=== PATIENT | male | born 1990 | race Caucasian/White ===

== ENCOUNTER 2016-06-30 09:08 | Emergency (ER) | payer OTHER ==
[~2016-06-30] VITALS: Ht 185.4 cm; Wt 104.5 kg
[~2016-06-30 09:08] MED LIST: ASPIR 8181 M1 PO; BACTRIM,SEPT1 TABLET PO; DEPAKOTE ER500 MG PO; FLEXERIL10 MG PO; FLEXERIL5 MG PO; KEFLEX500 MG PO; LEVEMIR100 UNIT/2 SC; LISINOPRIL-HCT1 EAC3 PO; MOTRIN800 MG PO; NAPROSYN500 MG PO; NAPROXEN500 MG PO; NORCO 7.5/321 TABLET PO; NOVOLIN N100 UNITS/ SC; NOVOLIN,HU100 UNITS1 SC; OXYCODONE-APAP1 EACH PO; PERCOCET 5/31 TABLET PO; PRAVACHOL40 MG PO; PRILOSEC OTC20 MG PO; TENORMIN50 MG PO; TOPIRAMATE25 MG PO; TORADOL10 MG PO; TRILEPTAL600 MG PO
[2016-06-30 10:55] LABS: POINT-OF-CARE METER ID UU14100415
[2016-06-30] MEDS ORDERED: ZOFRAN ODT4 MG PO (12:15)
[2016-06-30] MEDS ORDERED: REGLAN10 MG PO (12:18)
[2016-06-30] MEDS ORDERED: TORADOL10 MG PO (12:18)
[2016-06-30 12:20] VITALS: BP 123/82
== END 2016-06-30 12:25 | disposition home or self-care (01) ==
LOC: EME 09:08
PROVIDERS: Nurse Practitioner Family
DX: E10.65 Type 1 diabetes mellitus with hyperglycemia (principal); B34.9 Viral infection, unspecified; R51 Headache; F43.9 Reaction to severe stress, unspecified; E78.5 Hyperlipidemia, unspecified; I10 Essential (primary) hypertension; Z88.6 Allergy status to analgesic agent
CPT/HCPCS: 82948; 99281; 99284; J1885; Q0177

== ENCOUNTER 2016-07-27 03:01 | Emergency (ER) | payer OTHER ==
[~2016-07-27] VITALS: Ht 182.9 cm; Wt 103.5 kg
[~2016-07-27 03:01] MED LIST changes: +REGLAN10 MG PO; +ZOFRAN ODT4 MG PO
[2016-07-27 03:34] LABS: CHLORIDE 101 mEq/L (99-109); HEMATOCRIT 44.4 % (38.0-50.0); MCH 29.5 PG (29.0-34.0); MCHC 33.6 G/DL (30.0-36.0); MCV 87.9 FL (86-99); MEAN PLAT.VOLUME 10.4 uM^3 (9.0-12.4); PLATELET COUNT 128 K/uL (156-360); POTASSIUM 3.8 mEq/L (3.7-5.4); RBC DIS.WIDTH-CV 13.3 % (11.8-14.6); RBC DIS.WIDTH-SD 43.1 % (39-53); RED BLOOD COUNT 5.05 M/uL (4.00-5.50); SODIUM 137 mEq/L (136-147); WHITE BLOOD COUNT 4.3 K/uL (4.1-10.2)
[2016-07-27 03:37] LABS: ANION GAP 14 MEQ/L (2-14)
[2016-07-27 03:39] LABS: GFR ESTIMATE (CALCULATED) > 59 mL/min/
[2016-07-27 03:40] LABS: UREA NITROGEN (BUN) 18 mg/dL (9-23)
[2016-07-27 03:42] LABS: GLUCOSE 402 mg/dL (70-99)
[2016-07-27 03:46] LABS: TROP-I INTERPRETATION NEGATIVE; TROPONIN-I < 0.01 ng/mL (0.0-0.30)
[2016-07-27 05:34] LABS: CARBON DIOXIDE (BICARBONATE) 31.2 MEQ/L (20-31)
[2016-07-27 06:40] LABS: TOTAL BILIRUBIN 0.6 mg/dL (0.0-1.0)
[2016-07-27 06:41] LABS: ALKALINE PHOSPHATASE 71 IU/L (3-129)
[2016-07-27 06:42] LABS: D-DIMER ELISA < 0.15 mg/L FEU (< 0.57)
[2016-07-27 06:44] LABS: DIRECT BILIRUBIN 0.1 mg/dL (0.0-0.3)
[2016-07-27 07:56] LABS: TROP-I INTERPRETATION NEGATIVE; TROPONIN-I < 0.01 ng/mL (0.0-0.30)
[2016-07-27] MEDS ORDERED: ZITHROMAX Z-PA250 MG PO (09:20)
[2016-07-27] MEDS ORDERED: PROAIR HFA8.5 GM IH (09:20)
[2016-07-27 09:24] VITALS: BP 102/52
== END 2016-07-27 09:27 | disposition home or self-care (01) ==
LOC: EME 03:01
PROVIDERS: Emergency Medicine
DX: J40 Bronchitis, not specified as acute or chronic (principal); R07.89 Other chest pain; E11.65 Type 2 diabetes mellitus with hyperglycemia; E78.5 Hyperlipidemia, unspecified; I10 Essential (primary) hypertension; F17.200 Nicotine dependence, unspecified, uncomplicated; Z79.82 Long term (current) use of aspirin; Z79.4 Long term (current) use of insulin
CPT/HCPCS: 71020; 80048; 80076; 80164; 82010; 82803; 84484; 85027; 85379; 93005; 94640; 99281; 99284

== ENCOUNTER 2016-08-09 05:02 | Emergency (ER) | payer OTHER ==
[~2016-08-09] VITALS: Ht 185.4 cm; Wt 98.8 kg
[~2016-08-09 05:02] MED LIST changes: +PROAIR HFA8.5 GM IH; +ZITHROMAX Z-PA250 MG PO
[2016-08-09 05:38] LABS: CHLORIDE 103 mEq/L (99-109); POTASSIUM 3.7 mEq/L (3.7-5.4); SODIUM 138 mEq/L (136-147)
[2016-08-09 05:40] LABS: GLUCOSE 142 mg/dL (70-99)
[2016-08-09 05:41] LABS: ANION GAP 10 MEQ/L (2-14)
[2016-08-09 05:42] LABS: TOTAL BILIRUBIN 0.7 mg/dL (0.0-1.0)
[2016-08-09 05:44] LABS: ALKALINE PHOSPHATASE 59 IU/L (3-129); GFR ESTIMATE (CALCULATED) > 59 mL/min/
[2016-08-09 05:45] LABS: UREA NITROGEN (BUN) 24 mg/dL (9-23)
[2016-08-09 05:48] LABS: HEMATOCRIT 42.6 % (38.0-50.0); MCH 29.7 PG (29.0-34.0); MCHC 35.2 G/DL (30.0-36.0); MCV 84.4 FL (86-99); RBC DIS.WIDTH-CV 12.9 % (11.8-14.6); RBC DIS.WIDTH-SD 39.3 % (39-53); RED BLOOD COUNT 5.05 M/uL (4.00-5.50)
[2016-08-09 05:49] LABS: PLATELET COUNT 168 K/uL (156-360); WHITE BLOOD COUNT 5.7 K/uL (4.1-10.2)
[2016-08-09] MEDS ORDERED: BENTYL20 MG PO (10:43)
[2016-08-09 11:14] VITALS: BP 114/66
== END 2016-08-09 11:26 | disposition home or self-care (01) ==
LOC: EME 05:02
DX: K27.9 Peptic ulcer, site unspecified, unspecified as acute or chronic, without hemorrhage or perforation (principal); R10.9 Unspecified abdominal pain; F17.200 Nicotine dependence, unspecified, uncomplicated; E11.9 Type 2 diabetes mellitus without complications; E78.5 Hyperlipidemia, unspecified; I10 Essential (primary) hypertension; Z79.4 Long term (current) use of insulin; Z79.82 Long term (current) use of aspirin
CPT/HCPCS: 74177; 80053; 81003; 85027; 99281; 99285; J2270

== ENCOUNTER 2016-08-27 15:55 | Emergency (ER) | payer OTHER ==
[~2016-08-27] VITALS: Ht 182.9 cm; Wt 83.3 kg
[~2016-08-27 15:55] MED LIST changes: +BENTYL20 MG PO
[2016-08-27 16:39] LABS: POINT-OF-CARE METER ID UU13113778
[2016-08-27 16:51] LABS: HEMATOCRIT 40.6 % (38.0-50.0); MCH 29.7 PG (29.0-34.0); MCHC 35.5 G/DL (30.0-36.0); MCV 83.7 FL (86-99); MEAN PLAT.VOLUME 9.8 uM^3 (9.0-12.4); PLATELET COUNT 142 K/uL (156-360); RBC DIS.WIDTH-CV 13.2 % (11.8-14.6); RBC DIS.WIDTH-SD 39.8 % (39-53); RED BLOOD COUNT 4.85 M/uL (4.00-5.50); WHITE BLOOD COUNT 4.8 K/uL (4.1-10.2)
[2016-08-27 17:02] LABS: CHLORIDE 103 mEq/L (99-109); POTASSIUM 4.2 mEq/L (3.7-5.4); SODIUM 135 mEq/L (136-147)
[2016-08-27 17:05] LABS: GLUCOSE 272 mg/dL (70-99)
[2016-08-27 17:06] LABS: ANION GAP 9 MEQ/L (2-14)
[2016-08-27 17:07] LABS: TOTAL BILIRUBIN 0.5 mg/dL (0.0-1.0)
[2016-08-27 17:08] LABS: ALKALINE PHOSPHATASE 53 IU/L (3-129); GFR ESTIMATE (CALCULATED) > 59 mL/min/
[2016-08-27 17:09] LABS: UREA NITROGEN (BUN) 24 mg/dL (9-23)
[2016-08-27 19:06] LABS: POINT-OF-CARE METER ID UU14100415
[2016-08-27] MEDS ORDERED: VALIUM5 MG PO (20:08)
[2016-08-27 20:18] VITALS: BP 124/75
== END 2016-08-27 20:39 | disposition home or self-care (01) ==
LOC: EME 15:55
PROVIDERS: Physician Assistant
DX: E11.65 Type 2 diabetes mellitus with hyperglycemia (principal); R25.2 Cramp and spasm; E78.5 Hyperlipidemia, unspecified; I10 Essential (primary) hypertension; Z79.4 Long term (current) use of insulin; Z79.82 Long term (current) use of aspirin; F17.200 Nicotine dependence, unspecified, uncomplicated
CPT/HCPCS: 80053; 81003; 82010; 82948; 85027; 99281; 99285; J2270; J2405; J3010; J7030

== ENCOUNTER 2016-11-10 21:50 | Emergency (ER) | payer OTHER ==
[~2016-11-10] VITALS: Ht 185.4 cm; Wt 95.5 kg
[~2016-11-10 21:50] MED LIST changes: +VALIUM5 MG PO
[2016-11-10 22:35] LABS: HEMATOCRIT 43.3 % (38.0-50.0); MCH 30.3 PG (29.0-34.0); MCHC 33.9 G/DL (30.0-36.0); MCV 89.3 FL (86-99); MEAN PLAT.VOLUME 9.6 uM^3 (9.0-12.4); PLATELET COUNT 161 K/uL (156-360); RBC DIS.WIDTH-CV 13.1 % (11.8-14.6); RED BLOOD COUNT 4.85 M/uL (4.00-5.50); WHITE BLOOD COUNT 7.3 K/uL (4.1-10.2)
[2016-11-10 22:45] LABS: CHLORIDE 97 mEq/L (99-109); POTASSIUM 5.3 mEq/L (3.7-5.4); SODIUM 130 mEq/L (136-147)
[2016-11-10 22:48] LABS: ANION GAP 9 MEQ/L (2-14)
[2016-11-10 22:50] LABS: ALKALINE PHOSPHATASE 69 IU/L (3-129)
[2016-11-10 22:51] LABS: GFR ESTIMATE (CALCULATED) > 59 mL/min/
[2016-11-10 22:52] LABS: UREA NITROGEN (BUN) 27 mg/dL (9-23)
[2016-11-10 22:56] LABS: GLUCOSE 628 mg/dL (70-99)
[2016-11-11 00:15] LABS: ADD MIUA? NO; BILIRUBIN NEGATIVE; BLOOD NEGATIVE; COLOR STRAW ((YELLOW)); GLUCOSE (STRIP) >=500; KETONES NEGATIVE; LEUKOCYTES NEGATIVE; NITRITE NEGATIVE; PROTEIN (STRIP) NEGATIVE; SPECIFIC GRAVITY 1.026 (1.000-1.030); UCUL ADDED? NO; UROBILINOGEN 0.2 MG/DL (0.2-1.0)
[2016-11-11 01:03] LABS: POINT-OF-CARE METER ID UU14100415
[2016-11-11 01:35] LABS: POINT-OF-CARE METER ID UU14100415
[2016-11-11 02:20] LABS: POINT-OF-CARE METER ID UU14100415
[2016-11-11 03:00] VITALS: BP 107/60
== END 2016-11-11 03:01 | disposition home or self-care (01) ==
LOC: EME 21:50
PROVIDERS: Emergency Medicine
DX: E11.65 Type 2 diabetes mellitus with hyperglycemia (principal); I10 Essential (primary) hypertension; F32.9 Major depressive disorder, single episode, unspecified; E78.5 Hyperlipidemia, unspecified; Z79.4 Long term (current) use of insulin; Z79.82 Long term (current) use of aspirin; F17.200 Nicotine dependence, unspecified, uncomplicated; Z91.14 Patient's other noncompliance with medication regimen
CPT/HCPCS: 80053; 81003; 82948; 85027; 99281; 99285; J1815; J1885; J7030

== ENCOUNTER 2016-11-24 06:14 | Emergency (ER) | payer OTHER ==
[~2016-11-24] VITALS: Ht 185.4 cm; Wt 96.2 kg
[2016-11-24 08:11] LABS: HEMATOCRIT 40.7 % (38.0-50.0); MCH 30.9 PG (29.0-34.0); MCHC 34.9 G/DL (30.0-36.0); MCV 88.5 FL (86-99); MEAN PLAT.VOLUME 9.9 uM^3 (9.0-12.4); PLATELET COUNT 159 K/uL (156-360); RBC DIS.WIDTH-CV 12.8 % (11.8-14.6); RBC DIS.WIDTH-SD 41.1 % (39-53); WHITE BLOOD COUNT 6.1 K/uL (4.1-10.2)
[2016-11-24 08:27] LABS: CHLORIDE 106 mEq/L (99-109); POTASSIUM 3.6 mEq/L (3.7-5.4); SODIUM 139 mEq/L (136-147)
[2016-11-24 08:29] LABS: GLUCOSE 73 mg/dL (70-99)
[2016-11-24 08:31] LABS: ANION GAP 8 MEQ/L (2-14); TOTAL BILIRUBIN 0.8 mg/dL (0.0-1.0)
[2016-11-24 08:33] LABS: ALKALINE PHOSPHATASE 62 IU/L (3-129); GFR ESTIMATE (CALCULATED) > 59 mL/min/
[2016-11-24 08:34] LABS: UREA NITROGEN (BUN) 16 mg/dL (9-23)
[2016-11-24 08:36] LABS: LIPASE 15 U/L (1.0-51.0)
[2016-11-24 09:58] LABS: ADD MIUA? NO; BILIRUBIN NEGATIVE; BLOOD NEGATIVE; COLOR AMBER ((YELLOW)); GLUCOSE (STRIP) >=500; KETONES NEGATIVE; LEUKOCYTES NEGATIVE; NITRITE NEGATIVE; PROTEIN (STRIP) NEGATIVE; SPECIFIC GRAVITY 1.029 (1.000-1.030); UCUL ADDED? NO
[2016-11-24 11:16] LABS: POINT-OF-CARE METER ID UU13113702
[2016-11-24 12:25] VITALS: BP 115/72
== END 2016-11-24 12:26 | disposition home or self-care (01) ==
LOC: EME 06:14
PROVIDERS: Emergency Medicine
DX: E86.0 Dehydration (principal); R10.84 Generalized abdominal pain; E11.9 Type 2 diabetes mellitus without complications; Z79.4 Long term (current) use of insulin; I10 Essential (primary) hypertension; E78.5 Hyperlipidemia, unspecified; F32.9 Major depressive disorder, single episode, unspecified; F17.200 Nicotine dependence, unspecified, uncomplicated
CPT/HCPCS: 74176; 80053; 81003; 82948; 83690; 85027; 99281; 99284; J2270; J2405; J7030

== ENCOUNTER 2016-12-20 18:18 | Emergency (ER) | payer OTHER ==
[~2016-12-20] VITALS: Ht 185.4 cm; Wt 97.9 kg
[2016-12-20] MEDS ORDERED: MOTRIN800 MG PO (22:34)
[2016-12-20 23:03] VITALS: BP 106/67
== END 2016-12-20 23:04 | disposition home or self-care (01) ==
LOC: EME 18:18
DX: S80.01XA Contusion of right knee, initial encounter (principal); S50.311A Abrasion of right elbow, initial encounter; W01.0XXA Fall on same level from slipping, tripping and stumbling without subsequent striking against object, initial encounter; Y92.480 Sidewalk as the place of occurrence of the external cause; Y99.0 Civilian activity done for income or pay; I10 Essential (primary) hypertension; E10.9 Type 1 diabetes mellitus without complications; Z79.4 Long term (current) use of insulin; F17.200 Nicotine dependence, unspecified, uncomplicated
CPT/HCPCS: 73564; 99281; 99284

== ENCOUNTER 2016-12-29 09:54 | Emergency (ER) | payer OTHER ==
[~2016-12-29] VITALS: Ht 185.4 cm; Wt 93.3 kg
[2016-12-29 10:27] LABS: POINT-OF-CARE METER ID UU13113778
[2016-12-29] MEDS ORDERED: BACTRIM,SEPT1 TABLET PO (11:36)
[2016-12-29] MEDS ORDERED: PERCOCET 5/31 TABLET PO (11:43)
[2016-12-29 12:13] VITALS: BP 120/76
== END 2016-12-29 12:14 | disposition home or self-care (01) ==
LOC: EME 09:54
PROC: 0H96XZZ Drainage of Back Skin, External Approach (ICD-10-PCS; principal; 2016-12-29)
DX: L02.212 Cutaneous abscess of back [any part, except buttock and flank] (principal); I10 Essential (primary) hypertension; E78.5 Hyperlipidemia, unspecified; E11.9 Type 2 diabetes mellitus without complications; Z79.4 Long term (current) use of insulin; Z79.82 Long term (current) use of aspirin; F17.200 Nicotine dependence, unspecified, uncomplicated
CPT/HCPCS: 82948; 99281; 99283

== ENCOUNTER 2017-01-21 01:40 | Emergency (ER) | payer OTHER ==
[~2017-01-21] VITALS: Ht 185.4 cm; Wt 96.6 kg
[2017-01-21 02:30] LABS: CARBON DIOXIDE (BICARBONATE) 26.7 MEQ/L (20-31); HEMATOCRIT 37.4 % (38.0-50.0); MCH 30.5 PG (29.0-34.0); MCV 87.2 FL (86-99); MEAN PLAT.VOLUME 9.7 uM^3 (9.0-12.4); PLATELET COUNT 151 K/uL (156-360); RBC DIS.WIDTH-CV 13.3 % (11.8-14.6); RBC DIS.WIDTH-SD 41.1 % (39-53); RED BLOOD COUNT 4.29 M/uL (4.00-5.50); WHITE BLOOD COUNT 6.6 K/uL (4.1-10.2)
[2017-01-21 02:43] LABS: CHLORIDE 105 mEq/L (99-109); POTASSIUM 4.2 mEq/L (3.7-5.4); SODIUM 136 mEq/L (136-147)
[2017-01-21 02:46] LABS: ANION GAP 12 MEQ/L (2-14)
[2017-01-21 02:47] LABS: TOTAL BILIRUBIN 0.3 mg/dL (0.0-1.0)
[2017-01-21 02:48] LABS: ALKALINE PHOSPHATASE 62 IU/L (3-129)
[2017-01-21 02:49] LABS: GFR ESTIMATE (CALCULATED) > 59 mL/min/
[2017-01-21 02:50] LABS: UREA NITROGEN (BUN) 15 mg/dL (9-23)
[2017-01-21 02:54] LABS: GLUCOSE 531 mg/dL (70-99)
[2017-01-21 03:51] LABS: POINT-OF-CARE METER ID UU13113747
[2017-01-21 04:37] LABS: ADD MIUA? NO; BILIRUBIN NEGATIVE; BLOOD NEGATIVE; COLOR YELLOW ((YELLOW)); GLUCOSE (STRIP) >=500; KETONES NEGATIVE; LEUKOCYTES NEGATIVE; NITRITE NEGATIVE; PROTEIN (STRIP) NEGATIVE; SPECIFIC GRAVITY 1.036 (1.000-1.030); UCUL ADDED? NO; UROBILINOGEN 0.2 MG/DL (0.2-1.0)
[2017-01-21] MEDS ORDERED: PERCOCET 5/31 TABLET PO (04:39)
[2017-01-21 05:36] VITALS: BP 126/68
[2017-01-21 11:45] LABS: POINT-OF-CARE METER ID UU13113778
== END 2017-01-21 05:36 | disposition home or self-care (01) ==
LOC: EME 01:40
PROVIDERS: Physician Assistant
DX: E11.65 Type 2 diabetes mellitus with hyperglycemia (principal); Z79.4 Long term (current) use of insulin; J06.9 Acute upper respiratory infection, unspecified; M54.5 Low back pain; R20.8 Other disturbances of skin sensation; I10 Essential (primary) hypertension; E78.5 Hyperlipidemia, unspecified; Z79.82 Long term (current) use of aspirin; F17.200 Nicotine dependence, unspecified, uncomplicated
CPT/HCPCS: 71020; 80053; 81003; 82010; 82803; 82948; 85027; 99281; 99284; J1885; J2405; J3010; J7030

== ENCOUNTER 2017-01-28 06:57 | Emergency (ER) | payer OTHER ==
[~2017-01-28] VITALS: Ht 182.9 cm; Wt 94.3 kg
[2017-01-28] MEDS ORDERED: NAPROSYN500 MG PO (10:22)
[2017-01-28 10:39] VITALS: BP 110/70
== END 2017-01-28 10:40 | disposition home or self-care (01) ==
LOC: EME 06:57
DX: M25.562 Pain in left knee (principal); R20.0 Anesthesia of skin; E11.40 Type 2 diabetes mellitus with diabetic neuropathy, unspecified; E11.65 Type 2 diabetes mellitus with hyperglycemia; Z79.4 Long term (current) use of insulin; I10 Essential (primary) hypertension; E78.5 Hyperlipidemia, unspecified; Z79.82 Long term (current) use of aspirin; F17.200 Nicotine dependence, unspecified, uncomplicated
CPT/HCPCS: 73564; 93971; 99281; 99284; J1885

== ENCOUNTER 2017-03-25 01:49 | Emergency (ER) | payer OTHER ==
[~2017-03-25] VITALS: Ht 182.9 cm; Wt 101.9 kg
[2017-03-25 02:14] LABS: POINT-OF-CARE METER ID UU13113778
[2017-03-25 02:31] LABS: HEMATOCRIT 41.9 % (38.0-50.0); MCH 29.9 PG (29.0-34.0); MCHC 34.4 G/DL (30.0-36.0); MCV 87.1 FL (86-99); MEAN PLAT.VOLUME 9.8 uM^3 (9.0-12.4); PLATELET COUNT 142 K/uL (156-360); RBC DIS.WIDTH-CV 12.7 % (11.8-14.6); RBC DIS.WIDTH-SD 40.6 % (39-53); RED BLOOD COUNT 4.81 M/uL (4.00-5.50); WHITE BLOOD COUNT 6.2 K/uL (4.1-10.2)
[2017-03-25 02:39] LABS: CHLORIDE 104 mEq/L (99-109); POTASSIUM 4.1 mEq/L (3.7-5.4); SODIUM 138 mEq/L (136-147)
[2017-03-25 02:42] LABS: GLUCOSE 281 mg/dL (70-99)
[2017-03-25 02:43] LABS: ANION GAP 8 MEQ/L (2-14)
[2017-03-25 02:44] LABS: TOTAL BILIRUBIN 0.7 mg/dL (0.0-1.0)
[2017-03-25 02:45] LABS: ALKALINE PHOSPHATASE 66 IU/L (3-129); GFR ESTIMATE (CALCULATED) > 59 mL/min/
[2017-03-25 02:46] LABS: UREA NITROGEN (BUN) 14 mg/dL (9-23)
[2017-03-25 05:37] LABS: POINT-OF-CARE METER ID UU13113702
[2017-03-25 06:02] VITALS: BP 145/73
== END 2017-03-25 06:04 | disposition home or self-care (01) ==
LOC: EXP 01:49 → EME 01:49 → EXP 06:04
PROVIDERS: Physician Assistant
DX: E11.65 Type 2 diabetes mellitus with hyperglycemia (principal); E11.40 Type 2 diabetes mellitus with diabetic neuropathy, unspecified; I10 Essential (primary) hypertension; E78.5 Hyperlipidemia, unspecified; F41.9 Anxiety disorder, unspecified; F32.9 Major depressive disorder, single episode, unspecified; F17.200 Nicotine dependence, unspecified, uncomplicated; Z79.4 Long term (current) use of insulin; Z79.82 Long term (current) use of aspirin; Z88.5 Allergy status to narcotic agent; Z88.8 Allergy status to other drugs, medicaments and biological substances
CPT/HCPCS: 80053; 81003; 82948; 85027; 99281; 99284; J2270; J2405; J7030

== ENCOUNTER 2017-04-21 04:33 | Emergency (ER) | payer OTHER ==
[~2017-04-21] VITALS: Ht 182.9 cm; Wt 96.5 kg
[2017-04-21] MEDS ORDERED: BACTRIM,SEPT1 TABLET PO (04:57)
[2017-04-21] MEDS ORDERED: NIX 5% CREAM60 GM TP (04:57)
[2017-04-21 05:20] VITALS: BP 125/78
== END 2017-04-21 05:33 | disposition home or self-care (01) ==
LOC: EME 04:33
DX: J34.0 Abscess, furuncle and carbuncle of nose (principal); B95.62 Methicillin resistant Staphylococcus aureus infection as the cause of diseases classified elsewhere; B86 Scabies; E11.40 Type 2 diabetes mellitus with diabetic neuropathy, unspecified; E11.69 Type 2 diabetes mellitus with other specified complication; I10 Essential (primary) hypertension; E78.5 Hyperlipidemia, unspecified; F41.9 Anxiety disorder, unspecified; F32.9 Major depressive disorder, single episode, unspecified; F17.200 Nicotine dependence, unspecified, uncomplicated; Z79.4 Long term (current) use of insulin; Z90.89 Acquired absence of other organs; Z88.5 Allergy status to narcotic agent; Z88.8 Allergy status to other drugs, medicaments and biological substances

== ENCOUNTER 2017-05-26 07:47 | Emergency (ER) | payer OTHER ==
[~2017-05-26] VITALS: Ht 182.9 cm; Wt 94.4 kg
[~2017-05-26 07:47] MED LIST changes: +NIX 5% CREAM60 GM TP
[2017-05-26] MEDS ORDERED: BASAGLAR K100 UNIT/1 SC (08:20)
[2017-05-26 08:28] LABS: BASOPHIL (%) 0.4 % (0-1); EOSINOPHIL (%) 1.1 % (0-5); EOSINOPHIL COUNT 0.1 K/uL (0-0.3); HEMATOCRIT 47.2 % (38.0-50.0); HEMOGLOBIN 16.7 G/DL (12.5-16.6); IMMATURE GRANULOCYTE (%) 0.5 % (0.0-0.7); LYMPHOCYTE (%) 25.4 % (15-42); LYMPHOCYTE COUNT 1.9 K/uL (1.0-2.8); MCH 30.9 PG (29.0-34.0); MCHC 35.4 G/DL (30.0-36.0); MCV 87.4 FL (86-99); MONOCYTE (%) 7.1 % (3-12); MONOCYTE COUNT 0.5 K/uL (0-0.8); NEUTROPHIL (%) 65.5 % (45-76); NEUTROPHIL COUNT 4.8 K/uL (1.8-6.4); PLATELET COUNT 161 K/uL (156-360); RBC DIS.WIDTH-CV 14.5 % (11.8-14.6); RBC DIS.WIDTH-SD 46.5 % (39-53); WHITE BLOOD COUNT 7.3 K/uL (4.1-10.2)
[2017-05-26 08:39] LABS: ALBUMIN 4.6 g/dL (3.2-4.8)
[2017-05-26 08:40] LABS: CHLORIDE 100 mEq/L (99-109); POTASSIUM 4.8 mEq/L (3.7-5.4); SODIUM 139 mEq/L (136-147)
[2017-05-26 08:42] LABS: GLUCOSE 261 mg/dL (70-99)
[2017-05-26 08:44] LABS: TOTAL BILIRUBIN 0.5 mg/dL (0.0-1.0)
[2017-05-26 08:45] LABS: ALKALINE PHOSPHATASE 69 IU/L (3-129)
[2017-05-26 08:46] LABS: CREATININE 0.8 mg/dL (0.6-1.3); GFR ESTIMATE (CALCULATED) > 59 mL/min/ (58.99-99999)
[2017-05-26 08:47] LABS: AST (GOT) 15 IU/L (2-34); UREA NITROGEN (BUN) 20 mg/dL (9-23)
[2017-05-26 08:48] LABS: ALT (GPT) 17 IU/L (3-49)
[2017-05-26 10:43] LABS: HEMOGLOBIN A1c (GLYCOHEMOGLOB) 8.3 % (Below 5.7)
[2017-05-26] MEDS ORDERED: NAPROXEN500 MG PO (11:05)
[2017-05-26] MEDS ORDERED: PEN-VEE K,VEET500 MG PO (11:05)
[2017-05-26 11:20] VITALS: BP 125/76
== END 2017-05-26 11:23 | disposition home or self-care (01) ==
LOC: EME 07:47
PROVIDERS: Physician Assistant
DX: E11.65 Type 2 diabetes mellitus with hyperglycemia (principal); K02.9 Dental caries, unspecified; R10.84 Generalized abdominal pain; Z79.4 Long term (current) use of insulin
CPT/HCPCS: 74177; 80053; 82010; 82948; 83036; 83605; 85025; 87040; 99281; 99285; J3010; J7120

== ENCOUNTER 2017-06-16 22:28 | Emergency (ER) | payer OTHER ==
[~2017-06-16] VITALS: Ht 182.9 cm; Wt 94.2 kg
[~2017-06-16 22:28] MED LIST changes: +BASAGLAR K100 UNIT/1 SC; +PEN-VEE K,VEET500 MG PO
[2017-06-17] MEDS ORDERED: NAPROSYN500 MG PO (00:23)
[2017-06-17 01:10] VITALS: BP 138/89
== END 2017-06-17 01:11 | disposition home or self-care (01) ==
LOC: EME 22:28
DX: S06.0X0A Concussion without loss of consciousness, initial encounter (principal); S00.03XA Contusion of scalp, initial encounter; S30.0XXA Contusion of lower back and pelvis, initial encounter; Y04.2XXA Assault by strike against or bumped into by another person, initial encounter; E11.40 Type 2 diabetes mellitus with diabetic neuropathy, unspecified; Z79.4 Long term (current) use of insulin; E78.5 Hyperlipidemia, unspecified; I10 Essential (primary) hypertension; F17.200 Nicotine dependence, unspecified, uncomplicated; F32.9 Major depressive disorder, single episode, unspecified; F41.9 Anxiety disorder, unspecified; Z88.5 Allergy status to narcotic agent
CPT/HCPCS: 82948; 99281; 99284